=== PATIENT | female | born 1995 ===

== ENCOUNTER 2017-04-30 13:33 | Outpatient (CLI) | payer OTHER ==
[~2017-04-30 13:33] MED LIST: KETO10TA2 PO
== END 2017-04-30 13:40 | disposition home or self-care (01) ==
LOC: EKG 13:33
DX: I10 Essential (primary) hypertension (principal)

== ENCOUNTER 2017-04-30 13:36 | Outpatient (CLI) | payer OTHER | END 2017-04-30 13:41 | disposition home or self-care (01) | LOC: RAD 13:36 | DX: R07.9 Chest pain, unspecified (principal) ==

== ENCOUNTER 2018-01-06 12:55 | Emergency (ER) | payer OTHER ==
[~2018-01-06] VITALS: Ht 170.2 cm; Wt 77.1 kg
[2018-01-06] MEDS ORDERED: LEVOTHYROXINE25 MCG PO (13:13)
[2018-01-06] MEDS ORDERED: TUSSI PRES-B L120 M1 PO (15:36)
[2018-01-06] MEDS ORDERED: OSEL75CA PO (15:36)
== END 2018-01-06 15:46 | disposition home or self-care (01) ==
LOC: ER 12:55
DX: B34.9 Viral infection, unspecified (principal)

== ENCOUNTER → 2018-05-12 | Emergency (ER) | payer OTHER ==
[~2018-05-12] VITALS: Ht 170.2 cm; Wt 73.0 kg
[~2018-05-12] MED LIST changes: +LEVOTHYROXINE25 MCG PO; +OSEL75CA PO; +TUSSI PRES-B L120 M1 PO
== END | disposition home or self-care (01) ==
LOC: ER 15:41
DX: L02.512 Cutaneous abscess of left hand (principal)